=== PATIENT | female | born 1975 | race Caucasian/White ===

== ENCOUNTER 2017-03-09 07:00 | Emergency (ER) | payer OTHER ==
[2017-03-09 07:13] VITALS: BP 107/64
[2017-03-09] MEDS ORDERED: LIDOCAINE PATCH 5% TOP STA (07:28)
--- NOTE | 2017-03-09 07:33 | ED Physician Documentation ---
History of Present Illness - Stated complaint Stated Complaint: BACK PX - Chief complaint Chief Complaint: Trauma Ch/Bk - Additonal information Additional information: hx from pt 41 f denies preg sat awkwardly in a chair for a long time several days ago and now has low back pain and spasm no fever no meds drugs using needles no abd pain no dysuria hematuria incontinence no numbness or weakness including no saddle anesthesia tried motrin and biofreeze s relief Review of Systems Constitutional: denies: Fever Cardiac: denies: Chest pain / pressure Respiratory: denies: Dyspnea GI: denies: Abdominal Pain : denies: Dysuria, Incontinent, Hematuria, Now EGA Musculoskeletal: reports: Back pain Neurologic: denies: Focal weakness, Numbness Immunocompromised: denies: Immunocompromised PD PAST MEDICAL HISTORY - Present Medications Home Medications: Ambulatory Orders Medication Instructions Recorded Confirmed Amitriptyline [Elavil] 12.5 mg PO QPM 03/09/17 03/09/17 Carisoprodol [Soma] 350 mg PO Q8H PRN #15 tablet 03/09/17 Lidocaine Patch 5% [Lidoderm Patch] 1 each TOP DAILY PRN #10 patch 03/09/17 Topiramate [Topamax] 1 tab PO QPM 03/09/17 03/09/17 lamoTRIgine [LaMICtal] 200 mg PO QPM 03/09/17 03/09/17 - Allergies Allergies/Adverse Reactions: Allergies Allergy/AdvReac Type Severity Reaction Status Date / Time acetaminophen Allergy Anaphylaxis Verified 03/09/17 07:09 cephalexin [From Keflex] AdvReac Emesis Verified 03/09/17 07:09 PD ED PE NORMAL - Vitals Vital signs reviewed: Yes - Cardiac Cardiac: RRR - Respiratory Respiratory: No respiratory distress, Clear bilaterally - Abdomen Abdomen: Soft, Non tender - Back Back: No spinal TTP (no focal spine TTP redness swelling or warmth), Other ( diffuse low back ST TTP and limited ROM anderson ext and rotation, flexion is OK) - Derm Derm: Normal color - Neuro Neuro: No motor deficit, No sensory deficit, Other (hip flex knee ext foot dorsi plantar and great toe ext 5/5 nl sensation, no clonus, denies saddle anesthesia) Results - Vitals Vitals: Vital Signs - 24 hr 03/09/17 07:11 Temperature 36.0 C L Heart Rate 85 Respiratory 16 Rate Blood Pressure 107/64 O2 Saturation 99 Oxygen O2 Source Room air Departure - Departure Disposition: 01 Home, Self Care Clinical Impression: Back muscle spasm Condition: Good Instructions: ED Spasm Back No Trauma Follow-Up: CATINA Gonzales [Provider Group] Prescriptions: Carisoprodol [Soma] 350 mg PO Q8H PRN #15 tablet PRN Reason: muscle spasm Lidocaine Patch 5% [Lidoderm Patch] 1 each TOP DAILY PRN #10 patch PRN Reason: Pain Comments: Continue your ibuprofen May apply up to two lidoderm patches to your lower back for up to 12 hr a day Some is a muscle relaxant and may cause drowsiness so do not drive. Ice and/or heating pads may help too - but don't apply a heating pad to the lidoderm patches Forms: Activity restrictions
[2017-03-09] MEDS ORDERED: LIDOCAINE PATCH 5% TOP ONE (07:37)
== END 2017-03-09 08:08 | disposition home or self-care (01) ==
LOC: ED 07:00
DX: M62.830 Muscle spasm of back (principal)
CPT/HCPCS: 99283; A9270

== ENCOUNTER 2017-05-02 07:18 | Day surgery (SDC) | payer OTHER ==
[~2017-05-02 07:18] MED LIST: CHLORHEXIDINE GLUCONATE 15 ML UDC PO ONE; ceFAZolin 2 GM/50 ML 0 GM/0 ML BAG IV ONE
[2017-05-02] MEDS ORDERED: OXYMETAZOLINE NASAL SPRAY NAS ONE ×3 (07:43→08:40)
[2017-05-02] MEDS ORDERED: CHLORHEXIDINE GLUCONATE 15 ML UDC PO ONE ×2 (07:46→09:16)
[2017-05-02 07:49] LABS: HCG UR QUAL NEGATIVE
[2017-05-02] MEDS ORDERED: LACTATED RINGERS 1,000 ML IV ONE ×3 (08:02→11:04)
[2017-05-02] MEDS ORDERED: CLINDAMYCIN 600 MG/50 ML 50 ML IV ONE (08:39)
[2017-05-02] MEDS ORDERED: LIDOCAINE 2%-EPI 1:100000 20 ML MDV SUBQ ONE ×2 (09:16)
[2017-05-02] MEDS ORDERED: DEXAMETHASONE 4 MG/ML VIAL ONE (10:03)
[2017-05-02] MEDS ORDERED: PROPOFOL 200 MG/20 ML VIAL IVP ONE (11:06)
[2017-05-02] MEDS ORDERED: DEXAMETHASONE 4 MG/ML VIAL IVP ONE (11:06)
[2017-05-02] MEDS ORDERED: LIDOCAINE-MPF 2% 5 ML VIAL IM ONE (11:06)
[2017-05-02] MEDS ORDERED: ONDANSETRON 4 MG/2 ML VIAL IVP ONE (11:06)
[2017-05-02] MEDS ORDERED: ROCURONIUM 50 MG/5 ML VIAL IVP ONE (11:06)
[2017-05-02] MEDS ORDERED: fentaNYL 100 MCG/2 ML VIAL IVP ONE (11:06)
[2017-05-02] MEDS: fentaNYL 100 MCG/2 ML VIAL ONE ×3 (11:20→11:55)
[2017-05-02] MEDS ORDERED: KETOROLAC 30 MG/ML VIAL ONE (11:23)
[2017-05-02] MEDS ORDERED: MORPHINE SOL 10 MG/0.5 ML SYRINGE ONE (13:39)
[2017-05-02 14:35] VITALS: BP 122/70
--- NOTE | 2017-05-02 18:49 | PROCEDURE REPORT ---
Hospitalist Procedure Note - Procedure Note Procedure Note: Operative Report: Modified Condylotomy Patient: Angle Gonzales : 1975 Provider: Anuj Solorzano DDS Date of service: 05/02/2017 Preoperative Diagnosis: Left TMJ internal derangement, jaw pain Procedure performed: Left modified condylotomy (left intraoral vertical ramus osteotomy of the mandible) with placement of intermaxillary fixation Postoperative diagnosis: Left TMJ internal derangement, jaw pain Anesthesia type: General anesthesia via NETT Anesthesiologist: Dr. Ten Nieves Location of surgery: [facility] Implants: All Biomet Hybrid arch bars x 2 11mm hybrid arch bar screws x 5 7mm hybrid arch bar screws x 5 All implants are superficial EBL: 100 mL IV Fluids: 600 mL crystaloid Drains: none Complications: none Indications for surgery: This is a 42 yo F who presented to the office with severe left facial pain. Clinical and radiographic examination was consistent with left TMJ internal derangement with limited opening and chronic pain. The patient had failed multiple conservative therapies, including splint use, behavior modification ( diet modification, avoiding stressors), medical management with amitriptyline, and lysis and lavage. After failure of these conservative therapies, it was decided that modified condylotomy was indicated for reduction of the patient's pain, increased mouth opening, and decreased incidence of closed locking. The RBAs of this procedure were discussed with the patient, including pain, swelling , bleeding, scarring, malocclusion, nonunion, malunion, infection, damage to teeth, numbness of the lip, chin, and/or tongue, worsening of TMJ symptoms, and need for further surgery. Adequate time was given to answer all questions and informed consent was obtained. Description of procedure: The patient was brought to the main operating room and placed in a supine position on the operating table. General anesthesia was induced by the anesthesia team and the airway was secured with a nasoendrotracheal tube via the R naris without complication. The tube was secured to the forehead in the usual fashion and the pressure points were padded and checked. A formal timeout was executed. A throat pack was placed. Local anesthesia was achieved with 2% lidocaine w/ 1:100K epinephrine x 6 mL. Hybrid arch bars were adapted to the maxilla and the mandible and fixated with the screws listed above. Reproducible occlusion without interference on the arch bar lugs was verified. Attention was directed to the left mandible. A BSSO incision was made, taking care to identify and protect the left Oseas's duct. The incision was carried down through the periosteum to bone. Subperiosteal dissection ensued, exposing the lateral border of the left ramus of the mandible from the coronoid notch to the inferior border of the mandible and the posterior border of the mandible. Lighted notch retractors and inferior border retractors were placed, achieving good visibility of the planned osteotomy site. An oscillating saw was used to complete an osteotomy from the coronoid notch, tapering off the posterior border of the mandible near the angle. The proximal segment was loose. It was grasped and gently pulled laterally to access the medial pterygoid muscle, which was carefully stripped off the proximal segment. The entire surgical area was irrigated copiously. 4-0 Vicryl suture was used to reapproximate the soft tissues in interrupted and continuous fashions. The oral cavity was rinsed free of debris. The throat pack was removed. The oropharynx was suctioned. An orogastric tube was passed. The patient was placed in IMF with three 24 gauge wire loops. Care of the patient was returned to the anesthesia team. The patient was emerged, extubated, and transferred to the PACU in stable condition.
== END 2017-05-02 07:19 | disposition home or self-care (01) ==
LOC: SDS 07:18
PROVIDERS: ATTEND Dentist Oral and Maxillofacial Surgery
PROC: 0NSV04Z Reposition Left Mandible with Internal Fixation Device, Open Approach (ICD-10-PCS; principal; 2017-05-02 08:30)
DX: M26.69 Other specified disorders of temporomandibular joint (principal); J32.9 Chronic sinusitis, unspecified
CPT/HCPCS: 21193; 81025; A9270; J7120